=== PATIENT | female | born 1995 | race Caucasian/White ===

== ENCOUNTER 2024-07-11 01:05 | Emergency (ER) | payer SELFPAY ==
[~2024-07-11] VITALS: Ht 172.7 cm; Wt 69.4 kg
[2024-07-11] MEDS ORDERED: IBUPROFEN 400 MG TABLET ONE (02:54)
[2024-07-11] MEDS: IBUPROFEN 400 MG TABLET PO ONE (02:54)
[2024-07-11 02:58] VITALS: BP 122/78; TEMP 98.1; O2SAT 98
== END 2024-07-11 02:59 | disposition home or self-care (01) ==
LOC: ER 01:09
DX: S09.8XXA Other specified injuries of head, initial encounter (principal); S39.82XA Other specified injuries of lower back, initial encounter; R51.9 Headache, unspecified; W18.39XA Other fall on same level, initial encounter; Y93.89 Activity, other specified; Y92.89 Other specified places as the place of occurrence of the external cause; Y99.8 Other external cause status
CPT/HCPCS: 70450-TC; 72131-TC; 72220-TC